=== PATIENT | male | born 1940 | race African-American/Black ===

== ENCOUNTER 2021-05-03 08:02 | Outpatient (CLI) | payer MEDICARE ==
--- NOTE | 2021-05-03 09:41 | Fluoroscopy Report ---
BARIUM SWALLOW Indication: DYSPHAGIA,UNSPECIFIED. Dry mouth. Technique: Single and double contrast barium technique utilized to evaluate the esophagus. FINDINGS: To begin the exam, swallowing was evaluated in the lateral position under direct fluorosco py. Swallowing was normal. No mucosal irregularity, mass, mass effect, or critical stenosis. There were no abnormal tertiary c ontractions as seen with dysmotility. No gastroesophageal reflux or hiatal hernia. IMPRESSION: Unremarkable exam. Fluoroscopic time: 1.0 minutes Number of fluoroscopic images: 36 Signer Name: Gian Nagel Jr, MD Signed: 05/03/2021 9:36 AM Workstation Name: [id number]
== END 2021-05-03 08:03 | disposition home or self-care (01) ==
LOC: FLUORO 08:02
PROVIDERS: ATTEND Otolaryngology
DX: R13.10 Dysphagia, unspecified (principal)
CPT/HCPCS: 74220